=== PATIENT | female | born 1950 | race Caucasian/White ===

== ENCOUNTER 2021-07-11 08:53 | Emergency (ER) | payer MEDICARE, OTHER ==
[~2021-07-11] VITALS: Ht 152.4 cm; Wt 78.0 kg
[~2021-07-11 08:53] MED LIST: AMLO5 PO; Diovan Hct 1601 EACH PO; ESCI10 PO; HYDACE5 PO; HYDCHL12.5 PO; LEVSOD112 PO; LEVSOD125 PO; METF500 PO; OMEP20ER PO; OMEPRAZOLE MAGN20 MG PO; ONDA4ODT MM; SIMV40 PO; SULF500 PO; TAMS.4ER PO
[2021-07-11 09:29] LABS: BASOPHILS ABSOLUTE AUTO 0.05 K/mm3 (0.00-0.23); BASOPHILS PERCENT AUTO 1 % (0-2); EOSINOPHILS ABSOLUTE AUTO 0.12 K/mm3 (0.00-0.68); EOSINOPHILS PERCENT AUTO 2 % (0-6); Hematocrit 43.4 % (33.0-51.0); Hemoglobin 14.7 g/dL (11.5-16.0); IMMATURE GRAN ABSOLUTE AUTO 0.03 K/mm3 (0.00-0.10); IMMATURE GRAN PERCENT AUTO 0 % (0-1); LYMPHOCYTES ABSOLUTE AUTO 0.68 K/mm3 (0.84-5.20); LYMPHOCYTES PERCENT AUTO 9 % (21-46); MONOCYTES PERCENT AUTO 7 % (4-13); Mean Corpuscular HGB 30.4 pg (26.0-34.0); Mean Corpuscular HGB Conc 33.9 g/dL (31.5-36.5); Mean Corpuscular Volume 90 fL (80-100); Mean Platelet Volume 9.5 fL (9.1-12.4); NEUTROPHILS ABSOLUTE AUTO 6.06 K/mm3 (1.96-9.15); NEUTROPHILS PERCENT AUTO 82 % (41-73); Platelet Count 316 K/mm3 (150-400); RDW Coefficient Variation 12.9 % (11.7-14.2); RDW Standard Deviation 42.3 fL (35.1-46.3); Red Blood Cell Count 4.83 M/mm3 (3.80-5.20); White Blood Cell Count 7.44 K/mm3 (4.00-11.30)
[2021-07-11 09:47] LABS: Alanine Aminotransfer (ALT/SGP 26 U/L (12-78); Albumin, Blood 3.6 g/dL (3.4-5.0); Albumin/Globulin Ratio 1.2 (0.8-1.8); Alk Phos 77 U/L (50-136); Anion Gap 7 mmol/L (6-16); Aspartate Aminotrans (AST/SGOT 17 U/L (12-37); Bilirubin, Total 1.2 mg/dL (0.1-1.0); Blood Urea Nitrogen 15 mg/dL (8-24); Bun/Creatinine Ratio 18.7 (12.0-20.0); CO2, Blood 29 mmol/L (21-32); Calcium, Blood 9.3 mg/dL (8.5-10.1); Chloride, Blood 106 mmol/L (98-108); Globulin, Blood 2.9 g/dL (2.2-4.0); Glomerular Filtration Rate >60 (60-); Glucose, Blood 160 mg/dL (70-99); Sodium, Blood 142 mmol/L (136-145); Total Protein, Blood 6.5 g/dL (6.4-8.2)
[2021-07-11] MEDS ORDERED: LOSARTAN-HCTZ1 EACH (12:22)
== END 2021-07-11 15:23 | disposition home or self-care (01) ==
LOC: ER 08:53
PROVIDERS: Emergency Medicine
DX: M54.6 Pain in thoracic spine (principal); R93.89 Abnormal findings on diagnostic imaging of other specified body structures; E03.9 Hypothyroidism, unspecified; E78.5 Hyperlipidemia, unspecified; E11.9 Type 2 diabetes mellitus without complications; Z87.891 Personal history of nicotine dependence; Z88.0 Allergy status to penicillin; Z79.899 Other long term (current) drug therapy
CPT/HCPCS: 36415; 71046; 80053; 84484; 85025; 93005; 93010; 99285-25; A9270

== ENCOUNTER 2021-08-30 06:15 | Day surgery (SDC) | payer MEDICARE, OTHER ==
[~2021-08-30] VITALS: Ht 152.4 cm; Wt 80.2 kg
[~2021-08-30 06:15] MED LIST changes: +EUTHYROX125 MCG PO; -LEVSOD125 PO; +LOSARTAN-HCTZ1 EACH; +VALSARTAN-HCTZ1 EAC5 PO
--- NOTE | 2021-08-30 11:29 | NUR ---
PT ARRIV[facility]33 [facility] AND OCCOMPANIED BY 2 RN. PT ON RA UPON ARRIVAL. PACEMAKER SITE ON RIGHT UPPER CHEST WALL, C/D/I. PT REPORTS PAIN AT SURGICAL SITE, ICE PACK IN PLACE AND TREATED PER EMAR. NO REPORT OF CHEST PAIN/PRESSURE. NO REPORT OF DYSPNEA UPON ARRIVAL TO UNIT.
--- NOTE | 2021-08-30 14:29 | NUR ---
PT LEFT PCU FOR IMAGING AT 1410 VIA [facility]. PT TRANSFERED TO [facility] VIA SLIDE SHEET AND THREE RN.
--- NOTE | 2021-08-30 18:13 | NUR ---
SHIFT SUMMARY PT A/O X4 AND COOPERATIVE OF CARE. PT FROM [facility] POST PACEMAKER PLACEMENT. PT REPORTS PAIN AT THE SURGICAL SITE, TREATED PER EMAR. SURGICAL SITE C/D/I SINCE ARRIVAL TO UNIT. NO REPORT OF CHEST PAIN/PRESSURE SINCE ARRIVAL TO UNIT. NO REPORT OF DYSPNEA/SOB SINCE ARRIVAL TO UNIT.
--- NOTE | 2021-08-30 21:16 | NUR ---
ASSUMED CARE OF PATIENT AT APPROXIMATELY 1910 FROM MALISSA Stroud RN. PATIENT ALERT AND ORIENTED X4; SBA OUT OF BED DUE TO LINES AND CORDS AND S/P PACEMAKER TODAY. PATIENT REPORTS PAIN IN RIGHT UPPER CHEST FROM PACEMAKER INSERTION TODAY; MEDICATED PER EMAR AND ICE PACK GIVEN. PATIENT DENIES NUMBNESS, TINGLING, DIZZINESS, AND NAUSEA. PACEMAKER SITE WNL; NO S/S OF ACTIVE BLEEDING OR HEMATOMA. PIV S/L. SLIING IN PLACE ON RIGHT ARM. ATRIAL PACED ON TELE; OXYGEN SATURATION ABOVE 90% ON ROOM AIR. SUPERVISOR WOOL SHEARING DAWIT San ASSISTING WITH CARE.
--- NOTE | 2021-08-31 02:31 | NUR ---
PT IS ALERT AND ORIENTED. PT AT START OF SHIFT HAD PAIN RATING OF 8/10 THAT WAS RELIEVED WITH PO PAIN MED. PACEMAKER SITE IS TENDER, WITH NO REDNESS OBSERVED. PT IS ABLE TO USE THE RESTROOM WITH STANDBY ASSIST.
--- NOTE | 2021-08-31 05:18 | NUR ---
PATIENT SLEPT ABOUT SEVEN HOURS LAST NIGHT. NO OTHER ACUTE CHANGES.
[2021-08-31] MEDS ORDERED: CLIN300 PO (10:30)
--- NOTE | 2021-08-31 10:53 | NUR ---
DISCHARGE: PATIENT ALERT AND ORIENTED X4. NEURO WNL. RESPIRATORY WNL. TELE SHOWING ATRIAL PACED. DENIES CHEST PAIN/PRESSURE. PACER SITE WNL, MINIMAL BRUISING, NO HEMATOMA. DR. COHEN IN TO ASSESS. PLAN TO DISCHARGE. VITAL SIGNS STABLE. ANTIBIOTIC INFUSED THIS AM. ARM SLING IN PLACE. DISCHARGE INSTRUCTIONS REVIEWED WELL POST OP CARE AND SAFETY. MEDICATIONS TO CYBER DEFENSE INCIDENT RESPONDER AND TAKE AND FOLLOW UP APPOINTMENTS. IV TAKEN OUT PER PROTOCOL WNL. LEFT UNIT WITH ALL PERSONAL BELONGINGS AND PACER BOX/PAPERWORK. IN TO CYBER DEFENSE INCIDENT RESPONDER.
== END 2021-08-31 10:51 | disposition home or self-care (01) ==
LOC: MHTC 06:15 → PCU 10:15 → MHTC 08-31 10:51
DX: I49.5 Sick sinus syndrome (principal); I48.0 Paroxysmal atrial fibrillation; I10 Essential (primary) hypertension; E78.5 Hyperlipidemia, unspecified; E03.9 Hypothyroidism, unspecified; E11.51 Type 2 diabetes mellitus with diabetic peripheral angiopathy without gangrene; Z79.01 Long term (current) use of anticoagulants; Z88.0 Allergy status to penicillin
CPT/HCPCS: 33208; 71046; 99152; 99153; A9270; C1769; C1785; C1894; C1898; J0360; J1580; J1644; J2250; J3010; J3370; J7030; J7040; Q9967

== ENCOUNTER 2022-10-02 07:38 | Day surgery (SDC) | payer MEDICARE, OTHER ==
[~2022-10-02] VITALS: Ht 149.9 cm; Wt 79.3 kg
[~2022-10-02 07:38] MED LIST changes: +CLIN300 PO
[2022-10-02] MEDS ORDERED: LOSA50 PO (08:07)
[2022-10-02] MEDS ORDERED: JANTOVEN3 M2 PO (08:08)
[2022-10-02] MEDS ORDERED: EUTHYROX100 MC1 PO (08:09)
--- NOTE | 2022-10-02 08:14 | NUR ---
10/02/22 0814 Jeaneth Rogers AT 0807 PLEDGET AT [id number]
[2022-10-02 09:16] VITALS: BP 172/66
== END 2022-10-02 09:26 | disposition home or self-care (01) ==
LOC: ORSCSDS 07:38
PROVIDERS: Ophthalmology
PROC: 08DJ3ZZ Extraction of Right Lens, Percutaneous Approach (ICD-10-PCS; principal; 2022-10-02 09:00)
DX: E11.36 Type 2 diabetes mellitus with diabetic cataract (principal); H25.13 Age-related nuclear cataract, bilateral; I10 Essential (primary) hypertension; Z95.0 Presence of cardiac pacemaker; F32.A Depression, unspecified; E78.5 Hyperlipidemia, unspecified; E03.9 Hypothyroidism, unspecified; I73.9 Peripheral vascular disease, unspecified; Z79.01 Long term (current) use of anticoagulants; Z79.899 Other long term (current) drug therapy
CPT/HCPCS: 82947; J2001; J2250; J3010; J3301; J7040; V2632

== ENCOUNTER 2022-10-09 07:46 | Day surgery (SDC) | payer MEDICARE, OTHER ==
[~2022-10-09] VITALS: Ht 149.9 cm; Wt 78.8 kg
[~2022-10-09 07:46] MED LIST changes: +EUTHYROX100 MC1 PO; +JANTOVEN3 M2 PO; +LOSA50 PO
[2022-10-09] MEDS ORDERED: HYDCHL25 (08:10)
[2022-10-09] MEDS ORDERED: Simvastatin40 MG PO (08:10)
--- NOTE | 2022-10-09 08:13 | NUR ---
10/09/22 0813 Jeaneth Rogers AT 0810 PLEDGET AT 0812
[2022-10-09 09:36] VITALS: BP 170/90
--- NOTE | 2022-10-09 10:15 | NUR ---
[facility] [facility] [address] [address] [facility] PATIENT OXYGEN SATURATION FLUCTUATING BETWEEN 92-97%. STAYS ABOVE 92% BUT DOES NOT MEET ORDER FOR STAYING 94% AND ABOVE. PATIENT DENIES SHORTNESS OF BREATH, EAR PROBE HAS BEEN TRIED, PATIENT HAS BEEN ENCOURGAED TO DEEP BREATHE AND COUGH. PATENT INSTRUCTED ON USE OF INCENTIVE SPIROMETER AND PROVIDED INCENTIVE SPIROMETER. DR BROOKS ADVISED KEEP PATIENT FOR A FEW MINUTES AND TRY TO IMPROVE OXYGEN SATURATION. PATIENT WALKED AROUND FACILITY AND ENCOURAGED TO USE INCENTIVE SPIROMETER AND COUGH AND DEEP BREATHE. PATIENT MAINTAINED 94% AND ABOVE AND WAS DISCHARGED WITH INCENTIVE SPIROMETER.
== END 2022-10-09 10:10 | disposition home or self-care (01) ==
LOC: ORSCSDS 07:46
PROVIDERS: Ophthalmology
PROC: 08DK3ZZ Extraction of Left Lens, Percutaneous Approach (ICD-10-PCS; principal; 2022-10-09 09:00)
DX: E11.36 Type 2 diabetes mellitus with diabetic cataract (principal); H25.12 Age-related nuclear cataract, left eye; Z96.1 Presence of intraocular lens; K21.9 Gastro-esophageal reflux disease without esophagitis; I10 Essential (primary) hypertension; Z95.0 Presence of cardiac pacemaker; Z79.899 Other long term (current) drug therapy; Z79.84 Long term (current) use of oral hypoglycemic drugs
CPT/HCPCS: 82947; J2001; J2250; J3010; J3301; J7040; V2632